=== PATIENT | male | born 1985 | race Two or more races ===

== ENCOUNTER 2023-02-26 11:20 | Emergency (ER) | payer MEDICAID ==
[~2023-02-26] VITALS: Ht 175.3 cm; Wt 71.0 kg
[2023-02-26 11:54] VITALS: TEMP 98.5
[2023-02-26 13:41] VITALS: BP 110/68; PULSE 86; RESP 16
[2023-02-26] MEDS ORDERED: CIPR7.5D7 AU (13:42)
[2023-02-26] MEDS ORDERED: ACET-2080 PO (13:42)
[2023-02-26] MEDS ORDERED: GUAIFDM PO (13:42)
[2023-02-26] MEDS ORDERED: IBUP-1554 PO (13:42)
[2023-02-26] MEDS ORDERED: CEPH-558 PO (13:42)
== END 2023-02-26 13:57 | disposition home or self-care (01) ==
LOC: EMS 11:22
DX: H66.92 Otitis media, unspecified, left ear (principal); H60.92 Unspecified otitis externa, left ear; J06.9 Acute upper respiratory infection, unspecified
CPT/HCPCS: 99283; Z7502